=== PATIENT | male | born 1990 | race African-American/Black ===

== ENCOUNTER 2020-11-22 09:27 | Emergency (ER) | payer SELFPAY ==
[~2020-11-22] VITALS: Ht 167.6 cm; Wt 73.0 kg
[2020-11-22] MEDS ORDERED: HYDROCODONE/ACETAMINOPHEN 5/325MG TABLET PO ONE (10:30)
[2020-11-22 10:37] LABS: CLARITY URINE CLEAR (CLEAR); COLOR URINE YELLOW (YELLOW); KETONES URINE TRACE (NEGATIVE); LEUKOCYTE ESTERASE URINE 2+ (NEGATIVE); NITRITE URINE NEGATIVE (NEGATIVE); OCCULT BLOOD URINE NEGATIVE (NEGATIVE); PH URINE 6.5 (4.5-8.0); PROTEIN URINE 1+ (NEGATIVE); SPECIFIC GRAVITY URINE 1.029 (1.005-1.030)
[2020-11-22 12:30] VITALS: BP 130/78
== END 2020-11-22 12:30 | disposition home or self-care (01) ==
LOC: ER 09:53
DX: S30.22XA Contusion of scrotum and testes, initial encounter (principal); N39.0 Urinary tract infection, site not specified; W22.8XXA Striking against or struck by other objects, initial encounter; Y93.89 Activity, other specified; Y92.018 Other place in single-family (private) house as the place of occurrence of the external cause
CPT/HCPCS: 81003; 99283

== ENCOUNTER 2021-09-11 16:25 | Emergency (ER) | payer SELFPAY ==
[~2021-09-11] VITALS: Ht 170.2 cm; Wt 64.0 kg
[2021-09-11 16:30] VITALS: BP 120/80
== END 2021-09-11 20:07 | disposition left against medical advice (07) ==
LOC: ER 16:25
DX: M79.604 Pain in right leg (principal); Z53.21 Procedure and treatment not carried out due to patient leaving prior to being seen by health care provider